=== PATIENT | female | born 1995 | race Caucasian/White ===

== ENCOUNTER 2019-05-21 15:57 | Day surgery (SDC) | payer OTHER ==
[~2019-05-21] VITALS: Ht 170.2 cm; Wt 73.0 kg
[2019-05-21 16:59] VITALS: BP 114/66
[2019-05-21] MEDS ORDERED: HYDR-3240 PO (17:19)
[2019-05-21] MEDS ORDERED: BUPIVACAINE/EPI 0.5% 1:200K ONE (17:23)
[2019-05-21] MEDS ORDERED: FENTANYL PF 250 MCG/5ML ONE (17:25)
[2019-05-21] MEDS ORDERED: MIDAZOLAM 1 MG/ML, 2ML ONE (17:25)
[2019-05-21 18:19] LABS: HCG UR SG 1.018 (1.003-1.030)
[2019-05-21] MEDS ORDERED: ONDANSETRON 2MG/ML, 2ML ONE ×2 (18:47)
[2019-05-21] MEDS ORDERED: DEXAMETHASONE 4 MG/ML, 1ML ONE ×2 (18:47)
[2019-05-21] MEDS ORDERED: PROPOFOL 10 MG/ML, 20ML ONE (18:48)
[2019-05-21] MEDS ORDERED: ROCURONIUM 10MG/ML,5ML ONE (18:48)
[2019-05-21] MEDS ORDERED: CEFAZOLIN 1,000 MG ONE ×2 (18:48)
[2019-05-21] MEDS ORDERED: SUCCINYLCHOLINE 20 MG/ML, 10ML ONE (18:48)
[2019-05-21] MEDS ORDERED: FENTANYL PF 100 MCG/2ML ONE (19:24)
[2019-05-21] MEDS ORDERED: ACETAMINOPHEN 650 MG/20.3 ML UDC ONE (19:24)
[2019-05-21] MEDS ORDERED: MEPERIDINE/PF 25MG/ML,1ML ONE (19:24)
[2019-05-21] MEDS ORDERED: OXYcodone 5 MG/5 ML ORAL.SOL UDC ONE (19:24)
[2019-05-21] MEDS ORDERED: MEPERIDINE/PF 25MG/0.5ML IVPush PRN (19:30)
[2019-05-21] MEDS ORDERED: LABETALOL 5MG/ML, 20ML IV PRN (19:30)
[2019-05-21] MEDS ORDERED: DIAZEPAM 5 MG/ML, 2ML IVPush PRN (19:30)
[2019-05-21] MEDS ORDERED: HALOPERIDOL 5 MG/ML IV PRN (19:30)
[2019-05-21] MEDS ORDERED: HYDROmorphone 2 MG/ML, 1ML IVPush PRN (19:30)
[2019-05-21] MEDS ORDERED: ACETAMINOPHEN 325 MG TABLET PO PRN (19:30)
[2019-05-21] MEDS ORDERED: PROMETHAZINE 25 MG/ML, 1ML IV PRN (19:30)
[2019-05-21] MEDS ORDERED: MIDAZOLAM 1 MG/ML, 2ML IV PRN (19:30)
[2019-05-21] MEDS ORDERED: MORPHINE SULFATE 4 MG/ML, 1ML IVPush PRN (19:30)
[2019-05-21] MEDS ORDERED: hydrALAzine 20 MG/ML, 1ML IV PRN (19:30)
[2019-05-21] MEDS ORDERED: ALBUTEROL SULFATE 2.5 MG/3 ML NPPB PRN (19:30)
[2019-05-21] MEDS ORDERED: OXYcodone 5 MG/5 ML ORAL.SOL UDC PO PRN (19:30)
[2019-05-21] MEDS ORDERED: PROMETHAZINE 12.5 MG SUPP PR PRN (19:30)
[2019-05-21] MEDS ORDERED: EPHEDRINE 50 MG/ML, 1ML IVPush PRN (19:30)
[2019-05-21] MEDS ORDERED: ONDANSETRON 2MG/ML, 2ML IV PRN (19:30)
[2019-05-21] MEDS ORDERED: ONDANSETRON ODT 8 MG PO PRN (19:30)
[2019-05-21] MEDS: FENTANYL PF 100 MCG/2ML IV PRN ×2 (19:36→19:54)
[2019-05-21] MEDS ORDERED: OXYC5TAB2 PO (20:34)
== END 2019-05-21 22:10 | disposition home or self-care (01) ==
LOC: OR 15:57 → 4NOR 15:59 → OR 22:10
PROVIDERS: ATTEND Orthopaedic Surgery
DX: S42.022A Displaced fracture of shaft of left clavicle, initial encounter for closed fracture (principal); V89.2XXA Person injured in unspecified motor-vehicle accident, traffic, initial encounter; Y93.89 Activity, other specified; Y92.89 Other specified places as the place of occurrence of the external cause; Y99.8 Other external cause status
CPT/HCPCS: 23515; 73000; 81025; C1713; J0330; J0690; J1100; J2175; J2250; J2405; J2704; J3010; 76000; G0378